=== PATIENT | male | born 2000 | race Two or more races ===

== ENCOUNTER 2024-02-12 11:38 | Emergency (ER) | payer MEDICAID ==
[~2024-02-12] VITALS: Ht 172.7 cm; Wt 91.8 kg
[2024-02-12] MEDS ORDERED: [UNRECOGNIZED DRUG - CODE] TP (11:46)
[2024-02-12] MEDS ORDERED: IBUP-1506 PO (11:46)
[2024-02-12 11:48] VITALS: BP 113/71; PULSE 102; RESP 19; TEMP 98.2; O2SAT 98
[2024-02-12] MEDS: CEPHALEXIN MONOHYDRATE 500 MG CAPSULE PO ONE (12:45)
[2024-02-12] MEDS: MORPHINE SULFATE 4 MG/ML SYRINGE IM ONE (12:46)
[2024-02-12] MEDS: ONDANSETRON HCL 4 MG/2 ML VIAL IM ONE (12:46)
[2024-02-12] MEDS: LIDOCAINE 1% 10 ML VIAL SQ ONE (12:58)
[2024-02-12] MEDS ORDERED: CEPH-558 PO (13:07)
[2024-02-12] MEDS ORDERED: DOXY-354 PO (13:07)
[2024-02-12] MEDS ORDERED: ACET-2080 PO (13:07)
[2024-02-12] MEDS ORDERED: IBUP-1554 PO (13:07)
== END 2024-02-12 13:24 | disposition home or self-care (01) ==
LOC: EMS 11:38
DX: L05.01 Pilonidal cyst with abscess (principal)
CPT/HCPCS: 10080; 99284; 96372; J2270; J2405; J3490

== ENCOUNTER 2024-02-15 09:10 | Emergency (ER) | payer MEDICAID ==
[~2024-02-15] VITALS: Ht 172.7 cm; Wt 100.0 kg
[~2024-02-15 09:10] MED LIST: ACET-2080 PO; CEPH-558 PO; DOXY-354 PO; IBUP-1506 PO; IBUP-1554 PO; [UNRECOGNIZED DRUG - CODE] TP
[2024-02-15 09:15] VITALS: BP 127/82; PULSE 76; RESP 16; TEMP 98.6; O2SAT 100
== END 2024-02-15 10:17 | disposition home or self-care (01) ==
LOC: EMS 09:12
DX: L05.01 Pilonidal cyst with abscess (principal); Z98.890 Other specified postprocedural states
CPT/HCPCS: 99281; Z7502